=== PATIENT | male | born 2005 | race Hispanic/Latino ===

== ENCOUNTER 2025-11-19 07:59 | Emergency (ER) | payer SELFPAY ==
[2025-11-19] MEDS ORDERED: Lidocaine 1% w/Epinephrine 1:100K 20 ML VIAL ONE (09:14)
[2025-11-19] MEDS ORDERED: Bacitracin 1 PK ONE (09:36)
== END 2025-11-19 10:22 | disposition home or self-care (01) ==
LOC: ERS 07:59
DX: S51.812A Laceration without foreign body of left forearm, initial encounter (principal); Z23 Encounter for immunization; W27.8XXA Contact with other nonpowered hand tool, initial encounter; Y99.0 Civilian activity done for income or pay
CPT/HCPCS: 12001; 90471; 90715